=== PATIENT | male | born 1960 | race Caucasian/White ===

== ENCOUNTER 2018-07-17 08:06 | Day surgery (SDC) | payer BC, OTHER ==
[2018-07-14 12:39] VITALS: BMI 30.5
[~2018-07-17 08:06] MED LIST: MIDAZOLAM (PF) 2 MG/2 ML VIAL IV PRN
[2018-07-17] MEDS: LIDOCAINE 1% 20 ML VIAL (10MG/ML) FOR IV START INTRADERMA PRN (08:43)
[2018-07-17] MEDS: LACTATED RINGERS 1,000 ML IV SCH (09:04)
[2018-07-17 09:05] VITALS: TEMP 97.3
[2018-07-17] MEDS ORDERED: PROPOFOL 10 MG/ML 20 ML VIAL IV ONE (09:14)
[2018-07-17] MEDS ORDERED: MIDAZOLAM 2 MG/2 ML VIAL ONE (09:14)
[2018-07-17] MEDS ORDERED: fentaNYL (PF) 50 MCG/ML 2 ML AMP ONE (09:14)
[2018-07-17] MEDS ORDERED: LIDOCAINE 1% INJ 10MG/ML (20 ML MDV) ONE (09:14)
--- NOTE | 2018-07-17 09:41 | P.PCN ---
Date of Procedure: 07/17/18 Procedure(s) Performed: Procedure: Esophagogastroduodenoscopy and biopsy. Preoperative diagnosis: Chronic reflux requiring therapy. Postoperative diagnosis: 1. Hiatal hernia and a short segment of Lawler's but no evidence of acute esophagitis or strictures. 2. Mild antral gastritis. 3. Biopsies obtained from the duodenum, antrum, Lawler's esophagus and esophagus proximal to the GE junction. Preparation and sedation: Was provided by anesthesia. Brief clinical history: The patient is a 58-year-old male who is scheduled for this evaluation because of chronic reflux symptoms requiring therapy with the recurrence of his symptoms few days after stopping his medications. No alarm symptoms. His last upper endoscopy was in 2010. Procedure: With the patient on his left lateral decubitus position and after informed consent and adequate sedation, I passed the Olympus-GIF H1 90 video upper endoscope through the cricopharyngeus down the esophagus. GE junction was around 35 cm from the incisors and it was irregular and there were a short segment of Lawler's esophagus then we encounter a 2-3 cm sliding hiatal hernia. The esophagus did not show any evidence of esophagitis and there was no strictures. The endoscope was then passed into the stomach which was insufflated with air and inspected in detail including the retroflex view in the cardia. There was some mottling and erythema in the antrum but no ulcers or erosions. Pyloric channel, duodenal bulb, post bulbar area and descending duodenum appeared within normal limits. Because of his symptoms, I obtained biopsies from the duodenum, antrum and from the esophagus both in the Lawler's segment in 4 quadrants and proximal to the GE junction. The patient tolerated the procedure well. Plan: The patient was reassured. Discussed dietary measures including antireflux diet and measures. He will continue acid suppressive therapy and further plans can be made based on his course and biopsy results. I anticipate repeating his exam in 2-3 years. I will see him in follow-up and keep you updated on his progress.
[2018-07-17 10:10] VITALS: BP 131/85; PULSE 53; RESP 18
== END 2018-07-17 10:30 | disposition home or self-care (01) ==
LOC: ORWHC2ENDO 08:06
DX: K29.50 Unspecified chronic gastritis without bleeding (principal); K21.0 Gastro-esophageal reflux disease with esophagitis; K22.70 Barrett's esophagus without dysplasia; J45.20 Mild intermittent asthma, uncomplicated; I10 Essential (primary) hypertension; N40.0 Benign prostatic hyperplasia without lower urinary tract symptoms; E07.9 Disorder of thyroid, unspecified; I25.10 Atherosclerotic heart disease of native coronary artery without angina pectoris; E78.5 Hyperlipidemia, unspecified; I25.2 Old myocardial infarction; K44.9 Diaphragmatic hernia without obstruction or gangrene; Z88.0 Allergy status to penicillin; Z79.890 Hormone replacement therapy; Z79.899 Other long term (current) drug therapy; Z95.5 Presence of coronary angioplasty implant and graft
CPT/HCPCS: 43239; 88305

== ENCOUNTER 2021-12-26 08:47 | Day surgery (SDC) | payer BC, OTHER ==
[2021-12-25 08:34] VITALS: BMI 28.3
[~2021-12-26 08:47] MED LIST changes: +LACTATED RINGERS 1,000 ML IV SCH; +LIDOCAINE 1% (10MG/ML) FOR IV START INTRADERMA PRN; -MIDAZOLAM (PF) 2 MG/2 ML VIAL IV PRN; +ONDANSETRON 4 MG/2 ML VIAL IVP PRN
[2021-12-26 09:30] VITALS: TEMP 97.7
[2021-12-26] MEDS ORDERED: LIDOCAINE 2% INJ 20 MG/ML (2 ML VIAL) ONE (10:17)
[2021-12-26] MEDS ORDERED: PROPOFOL 10 MG/ML 20 ML VIAL IV ONE (10:17)
--- NOTE | 2021-12-26 10:32 | P.PCN ---
Date of Procedure: 12/26/21 Procedure(s) Performed: BRIEF HISTORY: Patient is a 61-year-old pleasant white male scheduled for an elective colonoscopy as a part of screening for colon cancer PROCEDURE PERFORMED: Colonoscopy. PREOPERATIVE DIAGNOSIS: Screening for colon cancer. IV sedation per Anesthesia. PROCEDURE: After informed consent was obtained, the patient, was brought into the endoscopy unit. IV sedation was administered by Anesthesia under continuous monitoring. Digital rectal examination was normal. Initially the Olympus CF-160 flexible video colonoscope was then inserted in the rectum, gradually advanced into the cecum without any difficulty. Careful examination was performed as the scope was gradually being withdrawn. Ileocecal valve and the appendiceal orifice were visualized and appeared normal. Prep was excellent. Mucosa of the cecum, ascending colon, transverse colon, descending colon, sigmoid colon, and rectum appeared normal. Scattered sigmoid diverticulosis. Retroflexion was performed in the rectum and no lesions were seen. The patient tolerated the procedure well. IMPRESSION: Normal-appearing colon from rectum to cecum no evidence of colorectal neoplasia . Scattered sigmoid diverticulosis. RECOMMENDATIONS: Findings of this examination were discussed with the patient as well as his family. He was advised to have a repeat colonoscopy in 10 years from.
[2021-12-26 11:02] VITALS: BP 111/71; PULSE 57; RESP 18
== END 2021-12-26 11:23 | disposition home or self-care (01) ==
LOC: ORWHC2ENDO 08:47
PROVIDERS: ATTEND Internal Medicine Gastroenterology
DX: Z12.11 Encounter for screening for malignant neoplasm of colon (principal); K57.30 Diverticulosis of large intestine without perforation or abscess without bleeding; I10 Essential (primary) hypertension; E78.5 Hyperlipidemia, unspecified; I25.2 Old myocardial infarction; Z95.5 Presence of coronary angioplasty implant and graft; M19.90 Unspecified osteoarthritis, unspecified site; E07.9 Disorder of thyroid, unspecified; Z88.0 Allergy status to penicillin; Z79.82 Long term (current) use of aspirin; Z79.890 Hormone replacement therapy; Z79.899 Other long term (current) drug therapy; Z83.3 Family history of diabetes mellitus; Z82.49 Family history of ischemic heart disease and other diseases of the circulatory system; Z84.1 Family history of disorders of kidney and ureter
CPT/HCPCS: J2704; J2001; G0121

== ENCOUNTER 2023-06-18 10:33 | Emergency (ER) | payer BC, OTHER ==
[2023-06-18 11:03] VITALS: BP 147/87; TEMP 98.1
--- NOTE | 2023-06-18 11:05 | ED ---
Fall HPI - General Chief Complaint: Fall Stated Complaint: fall-head injury-not on thinners Time Seen by Provider: 06/18/23 11:04 Source: patient, RN notes reviewed Mode of arrival: ambulatory Limitations: no limitations - History of Present Illness Initial Comments: This is a 62-year-old male who presents to the emergency department for a fall. States that he slipped on the ice and hit his head this morning. Believes that he lost consciousness. His states that he was confused and not answering her appropriately when he came inside. She is also unsure how long he may have lost consciousness for. He is not taking any blood thinners. He does have a hematoma to the back of his head. He had been applying ice to this and believes that it is starting to improve. Denies any nausea. Reports a mild headache and lightheadedness, but states overall he is feeling better. Their largest concern was in regards to his change in mentation after the event. MD Complaint: fall - Related Data Home Medications Medication Instructions Recorded Confirmed Omeprazole 20 mg PO QAM 07/08/14 12/25/21 Atorvastatin [Lipitor] 80 mg PO DAILY 07/14/18 12/25/21 Levothyroxine Sodium [Synthroid] 100 mcg PO QAM 07/14/18 12/25/21 Aspirin [Adult Low Dose Aspirin EC] 162 mg PO DAILY 12/25/21 12/25/21 Armand/D3/Mag11/Zinc/State Historical [employer] Director/Ash/Bor 1 each PO DAILY 12/25/21 12/25/21 [Caltrate 600+D Plus Tablet] Zinc 25 mg PO DAILY 12/25/21 12/25/21 lisinopriL [Zestril] 20 mg PO BID 12/25/21 12/25/21 Albuterol Sulfate [Proair 1 puff INHALATION Q6H PRN 12/26/21 12/26/21 Respiclick] Allergies Allergy/AdvReac Type Severity Reaction Status Date / Time Penicillins Allergy Chest Pain Verified 06/18/23 10:55 Review of Systems ROS Statement: Those systems with pertinent positive or pertinent negative responses have been documented in the HPI. ROS Other: All systems not noted in ROS Statement are negative. Past Medical History Past Medical History: Asthma, GERD/Reflux, Hyperlipidemia, Hypertension, Myocardial Infarction ([place]), Prostate Disorder, Thyroid Disorder Additional Past Medical History / Comment(s): Enlarged prostate. Last Myocardial Infarction Date:: 07/08/14 History of Any Multi-Drug Resistant Organisms: None Reported Past Surgical History: Heart Catheterization With Stent, Orthopedic Surgery, Tonsillectomy Additional Past Surgical History / Comment(s): Left ankle surgery x4-5, EGD, colonoscopy. Past Anesthesia/Blood Transfusion Reactions: Previous Problems w/ Anesthesia Additional Past Anesthesia/Blood Transfusion Reaction / Comment(s): Very slow to wake up from anesthesia. Date of Last Stent Placement:: 07/08/14 Past Psychological History: No Psychological Hx Reported Smoking Status: Never smoker Past Alcohol Use History: None Reported Past Drug Use History: None Reported - Past Family History Father Family Medical History: Myocardial Infarction ([place]) Additional Family Medical History / Comment(s): Father at age 31 or 32yrs of [place]. Mother Family Medical History: Diabetes Mellitus, Myocardial Infarction ([place]), Renal Disease Additional Family Medical History / Comment(s): Mother around age 60 yrs of diabetes which caused kidney failure and [place]. General Exam - General Exam Comments Initial Comments: Visual Physical Exam Vital signs reviewed General: Well-appearing, nontoxic, no acute distress. Head: Hematoma Eyes: PERRLA, EOMI ENT: Airway patent Chest: Nonlabored breathing Skin: No visual rash, normal skin tone Neuro: Alert and oriented 3 Musculoskeletal: No gross abnormalities Limitations: no limitations General appearance: alert, in no apparent distress Head exam: Present: other (Hematoma to the right side of the occiput. Minor tenderness. No overlying abrasions or lacerations.) Eye exam: Present: normal appearance, PERRL, EOMI. Absent: scleral icterus, conjunctival injection, periorbital swelling Respiratory exam: Present: normal lung sounds bilaterally. Absent: respiratory distress, wheezes, rales, rhonchi, stridor Cardiovascular Exam: Present: regular rate, normal rhythm, normal heart sounds. Absent: systolic murmur, diastolic murmur, rubs, gallop, clicks Neurological exam: Present: alert, oriented X3, CN II-XII intact Psychiatric exam: Present: normal affect, normal mood Course Vital Signs 06/18/23 06/18/23 10:52 12:13 Temperature 98.1 F Pulse Rate 60 86 Respiratory 18 20 Rate Blood Pressure 147/87 O2 Sat by Pulse 98 98 Oximetry Medical Decision Making - Medical Decision Making This is a 62 year old male who presents to the emergency department for a head injury. Was pt. sent in by a medical professional or institution? @ -No Did you speak to anyone other than the patient for history? @ -His provided the information about him being confused after the event. Did you review nursing and triage notes? @ -Yes, and I agree, it is accurate with regards to the patient's symptoms. Were old charts reviewed? @ -No Differential Diagnosis? @ -Differential Diagnosis Head Injury: Contusion, hematoma, intracranial hemorrhage, skull fracture, whiplash, concussion, this is not meant to be an all-inclusive list. EKG interpreted by me (3pts min.)? @ -Not obtained X-rays interpreted by me (1pt min.)? @ -Not obtained CT interpreted by me (1pt min.)? @ -Computed tomography scan of the brain and c-spine obtained. My interpretation identifies no evidence of an acute intracranial hemorrhage, skull fracture, or cervical spine fracture. U/S interpreted by me (1pt. min.)? @ -Not obtained What testing was considered but not performed? (CT, X-rays, U/S, labs)? Why? @ -None What meds were considered but not given? Why? @ -None Did you discuss the management of the patient with other professionals? @ -No Did you reconcile home meds? @ -No Was smoking cessation discussed for >3mins.? @ -No Was critical care preformed (if so, how long)? @ -No Were there social determinants of health that impacted care today? How? (Home lessness, low income, unemployed, alcoholism, drug addiction, transportation, low edu. Level, literacy, decrease access to med. care, custodial, rehab)? @ -No Was there de-escalation of care discussed even if they declined? (Discuss DNR or withdrawal of care, Hospice)? @ -No What co-morbidities impacted this encounter? (DM, HTN, Smoking, COPD, CAD, Cancer, CVA, Hep., AIDS, mental health diagnosis, sleep apnea, morbid obesity)? @ -None Was patient admitted / discharged? @ -Discharged. Computed tomography scan of the brain and C-spine obtained revealing no acute process. Of note, there was a wording error on the combined impression of the report making c-spine interpretation confusing, this was clarified within the body of the report and with radiology. Patient discharged home in stable condition. Advised ibuprofen and Tylenol as needed for pain relief. Undiagnosed new problem with uncertain prognosis? @ -None Drug Therapy requiring intensive monitoring for toxicity (Heparin, Nitro, Insulin, Cardizem)? @ -None Were any procedures done? @ -None Diagnosis/symptom? @ -Fall, head injury Acute, or Chronic, or Acute on Chronic? @ -Acute Uncomplicated (without systemic symptoms) or Complicated (systemic symptoms)? @ -Uncomplicated Side effects of treatment? @ -None Exacerbation, Progression, or Severe Exacerbation] @ -Not applicable Poses a threat to life or bodily function? @ -No Return precautions reviewed in depth, the patient is instructed to return to the emergency department with any new, worsening, or concerning symptoms. Patient verbalized understanding. This case was discussed in detail with the attending ED physician, Dr. Colmenares. Presentation, findings, and treatment plan discussed in detail as well. - Radiology Data Radiology results: report reviewed, image reviewed Disposition Clinical Impression: Fall, Head injury Disposition: HOME SELF-CARE Instructions (If sedation given, give patient instructions): Head Injury (ED) Additional Instructions: Return to the emergency department with any new, worsening, or concerning symptoms. Alternate with ibuprofen and Tylenol as needed for pain relief. Follow up with your primary care provider in 1-2 days. Is patient prescribed a controlled substance at d/c from ED?: No Referrals: Yevgeniy Alcazar DO [Primary Care Provider] - 1-2 days Time of Disposition: 11:46
--- NOTE | 2023-06-18 11:31 | CT ---
EXAMINATION TYPE: CT brain nataly wo con DATE OF EXAM: 06/18/2023 COMPARISON: None HISTORY: 62-year-old male with pain after fall, on blood thinners CT DLP: 1407.1 mGycm Automated exposure control for dose reduction was used. Technique: Examination of the head was done in axial plane without intravenous contrast. Coronal and sagittal reconstructions performed. CT of the cervical spine was obtained in axial plane without intravenous injection of contrast mater ial. Coronal and sagittal reformatted images were obtained from the axial views for evaluation of f ractures, spinal alignment and canal. FINDINGS: Head: There is no evidence of acute intracranial hemorrhage, acute ischemic changes, mass, mass-effect, or extra-axial fluid collection. There is no effacement of cerebral sulci or basal subarachnoid cister ns. There is no hydrocephalus. There is no midline shift. Martino-white matter distinction is preserv ed. Mild patchy white matter hypodensities especially in the basal ganglionic regions suggesting changes of chronic small vessel ischemic disease or old lacunar infarcts. Moderate lobulated mucosal thickening floors of the maxillary sinuses. Mild mucosal thickening ethmoi d air cells. Orbits and globes are intact. Mastoid air cells well pneumatized. Rightward nasal septal deviation. Cervical spine: Mild multilevel spondylotic change. Degenerative change at the C1 dens articulation. Fairly mild neur oforaminal stenoses throughout. The alignment of the cervical spine is normal on coronal and reformat talha images. There is no cranial vertebral abnormality. Fracture of the cervical spine is not seen. Th ere is no evidence of focal disk herniation. There is no central spinal canal stenosis. Sagittal and coronal reformatted images confirm above findings. COMBINED IMPRESSION: 1. No acute intracranial abnormality seen. 2. The acute fracture malalignment of the cervical spine. Mild multilevel spondylotic change. 3. Mild chronic ethmoid and maxillary sinus disease.
[2023-06-18 12:15] VITALS: PULSE 86; RESP 20
== END 2023-06-18 12:13 | disposition home or self-care (01) ==
LOC: EC 10:33
DX: S00.03XA Contusion of scalp, initial encounter (principal); I10 Essential (primary) hypertension; I25.2 Old myocardial infarction; J45.909 Unspecified asthma, uncomplicated; E78.5 Hyperlipidemia, unspecified; K21.9 Gastro-esophageal reflux disease without esophagitis; E07.9 Disorder of thyroid, unspecified; Z79.890 Hormone replacement therapy; Z79.82 Long term (current) use of aspirin; Z79.899 Other long term (current) drug therapy; Z88.0 Allergy status to penicillin; Z95.5 Presence of coronary angioplasty implant and graft; W00.0XXA Fall on same level due to ice and snow, initial encounter
CPT/HCPCS: 70450; 72125; 99284

== ENCOUNTER → 2023-11-07 | Outpatient (CLI) | payer OTHER ==
[2023-11-07 10:43] VITALS: BP 145/83; PULSE 62; RESP 16; TEMP 98.3
--- NOTE | 2023-11-07 11:22 | P.SLEEP ---
History of Present Illness DATE: 11/07/2023 CONSULTATION/NEW PATIENT EVALUATION HISTORY OF PRESENT ILLNESS/SLEEP-WAKE EVALUATION: 63-year-old gentleman had be en evaluated in the sleep center for possible obstructive sleep apnea hypopnea syndrome. SLEEP SCHEDULE: Usually sleep schedule from 8:30 PM to 5:30 AM 7 days a week. FALLING ASLEEP: No problems with falling asleep. DURING SLEEP: Patient wakes up from sleep 3 times with nocturia and heartburn. Positive history of witnessed episodes of stop breathing during the sleep by his . No history of hypnogogical hallucinations, sleep paralysis, or cataplexy. DURING THE DAY/WAKE STATE: Patient denies significant excessive daytime sleepiness. [place] sleepiness scale is 4. Patient usually does not take naps. PAST MEDICAL HISTORY: Coronary artery disease, hypertension, hyperlipidemia, hypothyroidism, acid reflux, BPH, asthma in childhood. PAST SURGICAL HISTORY: Stent insertions to coronary arteries, ankle surgery. MEDICATIONS: Please see below. SOCIAL HISTORY: Please see below. FAMILY HISTORY: Please see below. REVIEW OF SYSTEMS: Awakenings from sleep with nocturia. No fevers. No double vision. No recent chest pain. No shortness of breath. No abdominal pain. No bleeding episodes. No blood in urine. No seizure episodes. PHYSICAL EXAMINATION: GENERAL: A pleasant patient without any distress. VITAL SIGNS: Please see below, weight 182 pounds, BMI 31.5. HEENT: PERRLA, EOMI. Evaluation of oropharynx showed tongue protrudes midline, low position of soft palate Mallampati 4. NECK: Supple. No JVD. Thyroid is not palpable. 15 inches in circumference. LUNGS: Clear to percussion and to auscultation. Good air exchange. No wheezing or rhonchi. HEART: S1, S2 regular. No murmurs, gallops or rubs. ABDOMEN: Soft and nontender. Bowel sounds are present. No organomegaly appreciated. EXTREMITIES: No clubbing or cyanosis. BILINGUAL PATIENT SUPPORT CASEWORKER: Awake, alert, and oriented x3. Cranial nerves 2 to 7 intact. There is no fasciculation or atrophy noted. No focal deficits observed. ASSESSMENT: 1. Multiple awakenings from sleep with nocturia, extremely low position of soft palate Mallampati 4, retrognathia 2 mm, witnessed episode of stop breathing during the sleep. Obstructive sleep apnea hypopnea syndrome. 2. Mild obesity BMI 31.5. 3. Coronary artery disease, status post heart attack in 2015 and 2 stent insertions. 4. Hypertension. 5 hyperlipidemia. 6 . Acid reflux. 7. BPH. 8. History of asthma in childhood. PLAN: 1. Polysomnography for evaluation of patient's breathing during sleep. 2. Following plan after reading sleep study 3. Preferable position during sleep on the side. 4. No driving if patient feels any sleepiness. Patient is aware of civil and criminal liability for unsafe driving. 5. Sleep hygiene with regular sleep time for at least 7.5-8 hours. 6. Watching and losing weight. Thank you very much for referring this patient for consultation. Sincerely, Paul Vann MD, PhD, FAASM. Diplomat of [place] [employer], Sleep Medicine Board by [place] [employer] [place] [employer] [facility] [employer] [facility] [place] cc: Yevgeniy Alcazar DO, Krishen, Ajay MD Past Medical History Past Medical History: Asthma, GERD/Reflux, Hyperlipidemia, Hypertension, Myocardial Infarction ([place]), Prostate Disorder, Thyroid Disorder Additional Past Medical History / Comment(s): Enlarged prostate. Last Myocardial Infarction Date:: 07/08/14 History of Any Multi-Drug Resistant Organisms: None Reported Past Surgical History: Heart Catheterization With Stent, Orthopedic Surgery, Tonsillectomy Additional Past Surgical History / Comment(s): Left ankle surgery x4-5, EGD, colonoscopy. Past Anesthesia/Blood Transfusion Reactions: Previous Problems w/ Anesthesia Additional Past Anesthesia/Blood Transfusion Reaction / Comment(s): Very slow to wake up from anesthesia. Date of Last Stent Placement:: 07/08/14 Past Psychological History: No Psychological Hx Reported Additional Psychological History / Comment(s): Pt lives in his home with . They have been since 2007. Pt is independent. Pt is employed. He drives a car. Smoking Status: Never smoker Past Alcohol Use History: None Reported Additional Past Alcohol Use History / Comment(s): Quit drinking at age 24. Prior to that he would call himself a moderate drinker. Past Drug Use History: None Reported - Past Family History Father Family Medical History: Myocardial Infarction ([place]) Additional Family Medical History / Comment(s): Father at age 31 or 32yrs of [place]. Mother Family Medical History: Diabetes Mellitus, Myocardial Infarction ([place]), Renal Disease Additional Family Medical History / Comment(s): Mother around age 60 yrs of diabetes which caused kidney failure and [place]. Medications and Allergies Home Medications Medication Instructions Recorded Confirmed Type Omeprazole 20 mg PO QAM 07/08/14 11/07/23 History Atorvastatin [Lipitor] 80 mg PO DAILY 07/14/18 11/07/23 History Levothyroxine Sodium [Synthroid] 100 mcg PO QAM 07/14/18 11/07/23 History Aspirin [Adult Low Dose Aspirin EC] 162 mg PO DAILY 12/25/21 11/07/23 History Armand/D3/Mag11/Zinc/Stage Manager/Ash/Bor 1 each PO DAILY 12/25/21 11/07/23 History [Caltrate 600+D Plus Tablet] Zinc 25 mg PO DAILY 12/25/21 11/07/23 History lisinopriL [Zestril] 20 mg PO BID 12/25/21 11/07/23 History Albuterol Sulfate [Proair 1 puff INHALATION Q6H PRN 12/26/21 11/07/23 History Respiclick] Calcium Citrate/Vitamin D3 1 each PO 11/07/23 History [Citracal + D Maximum [place]] Cholecalciferol [Vitamin D3 (25 25 mcg PO DAILY 11/07/23 11/07/23 History Mcg = 1000 Iu)] Allergies Allergy/AdvReac Type Severity Reaction Status Date / Time Penicillins Allergy Chest Pain Verified 06/18/23 10:55 Physical Exam Vitals: Vital Signs Temp Pulse Resp BP Pulse Ox 11/07/23 10:41 98.3 F 62 16 145/83 99 Intake and Output 11/06/23 11/07/23 11/07/23 22:59 06:59 14:59 Other: Weight 82.554 kg Sleep Note - Sleep Data ESS Total: 4 - Sleep Note Sleep Note: Temperature: 98.3 F Pulse Rate: 62 Respiratory Rate: 16 Blood Pressure: 145/83 SpO2: 99 Height: 5 ft 3.7 in Weight: 82.554 kg BMI: Neck Circumference: 15
== END ==
LOC: 3 N SLEEP 10:21
PROVIDERS: ATTEND Internal Medicine
DX: G47.33 Obstructive sleep apnea (adult) (pediatric) (principal); E66.9 Obesity, unspecified; I25.10 Atherosclerotic heart disease of native coronary artery without angina pectoris; I10 Essential (primary) hypertension; E78.5 Hyperlipidemia, unspecified; K21.9 Gastro-esophageal reflux disease without esophagitis; N40.0 Benign prostatic hyperplasia without lower urinary tract symptoms; J45.909 Unspecified asthma, uncomplicated; Z68.31 Body mass index [BMI] 31.0-31.9, adult; Z95.5 Presence of coronary angioplasty implant and graft; Z86.74 Personal history of sudden cardiac arrest; Z88.0 Allergy status to penicillin; Z79.899 Other long term (current) drug therapy
CPT/HCPCS: 99211

== ENCOUNTER 2023-12-01 19:37 | Outpatient (CLI) | payer OTHER | END 2023-12-02 05:20 | disposition home or self-care (01) | LOC: 3 N SLEEP 19:37 | PROVIDERS: ATTEND Internal Medicine | DX: G47.33 Obstructive sleep apnea (adult) (pediatric) (principal); I10 Essential (primary) hypertension; I25.10 Atherosclerotic heart disease of native coronary artery without angina pectoris; E66.9 Obesity, unspecified; E78.5 Hyperlipidemia, unspecified; K21.9 Gastro-esophageal reflux disease without esophagitis; N40.0 Benign prostatic hyperplasia without lower urinary tract symptoms; M26.19 Other specified anomalies of jaw-cranial base relationship; J45.909 Unspecified asthma, uncomplicated; R35.1 Nocturia; Z68.31 Body mass index [BMI] 31.0-31.9, adult; Z95.5 Presence of coronary angioplasty implant and graft; Z86.74 Personal history of sudden cardiac arrest; Z88.0 Allergy status to penicillin; Z79.899 Other long term (current) drug therapy | CPT/HCPCS: 95810 ==